=== PATIENT | female | born 1970 | race Caucasian/White ===

== ENCOUNTER 2022-01-27 08:17 | Inpatient (IN) ==
--- NOTE | 2022-01-09 14:11 | PAT Medication Instructions ---
Medication Instructions Date of Service January 09, 2022 Home Medications Medication Instructions Recorded LORAZEPAM 1 mg PO Q6H PRN #20 05/05/13 OXYCODONE/ACETAMINOPHEN 5MG/325MG 1 - 2 tab PO Q4H PRN #90 05/05/13 LORAZEPAM 1 mg PO Q6H PRN OXYCODONE/ACETAMINOPHEN 5MG/325MG 1 - 2 tab PO Q4H PRN cyclobenzaprine 5 mg tablet 5 mg PO TID gabapentin 800 mg tablet 800 mg PO TID lactobacillus combination no.4 3 billion cell capsule (Probiotic) 3,000 mmu ce lls PO QAM magnesium 500 mg tablet 15 mg PO QAM meloxicam 15 mg tablet 15 mg PO QAM omeprazole 20 mg capsule,delayed release 20 mg PO QAM simvastatin 20 mg tablet 20 mg PO HS ASK your surgeon for instructions meloxicam 15 mg tablet 15 mg PO QAM DO NOT take the morning of surgery cyclobenzaprine 5 mg tablet 5 mg PO TID lactobacillus combination no.4 3 billion cell capsule (Probiotic) 3,000 mmu cells PO QAM magnesium 500 mg tablet 15 mg PO QAM Take morning of surgery With a small sip of water, OTHERWISE NOTHING TO EAT OR DRINK AFTER MIDNIGHT: LORAZEPAM 1 mg PO Q6H PRN(if needed) OXYCODONE/ACETAMINOPHEN 5MG/325MG 1 - 2 tab PO Q4H PRN(okay to take up to 4 hours prior to surgery if needed) gabapentin 800 mg tablet 800 mg PO TID omeprazole 20 mg capsule,delayed release 20 mg PO QAM Take evening before surgery LORAZEPAM 1 mg PO Q6H PRN(if needed) OXYCODONE/ACETAMINOPHEN 5MG/325MG 1 - 2 tab PO Q4H PRN(if needed) cyclobenzaprine 5 mg tablet 5 mg PO TID gabapentin 800 mg tablet 800 mg PO TID simvastatin 20 mg tablet 20 mg PO HS Other Notes If you have any questions please call us at [phone] or [phone] or [phone] or [phone]
--- NOTE | 2022-01-14 13:02 | Anesthesiology Consultation ---
Date of Service January 14, 2022 Assessment & Plan (1) Encounter for pre-operative examination: - check urine test STAT am DOS. - surgeon ordered medical clearance. - Pt reports several glasses-1 bottle of wine daily. - COVID screening: Per assessment on 01/14/2022: Travel screen negative, no known COVID-19 positive contacts or current COVID-19 related symptoms in past 2 weeks. Pt vaccinated. Surgeon arranging preop COVID testing, scheduled 01/23/2022. Awaiting results. Chart Review Chart Review: Pending: Refer to Additional Notes / Consult section and Patient seen in Pre Admission Testing Teaching & Discussion Pre-Anesthesia Teaching/Discussion Notes: Instructed NPO after midnight before surgery, except medications with 15 cc of water. Medication instructions provided according to the PAT guidelines. History Surgery Operation Date: 01/27/22 09:45 Proposed Procedures p L3-L4 Decompression, L3-L5 Fusion, Removal of Coflex, Spinal Cord Monitoring - Peter Cabello, Height/Weight Height: 5 ft 4 in Weight: 101.6 kg Allergies Allergy/AdvReac Type Severity Reaction Status Date / Time No Known Allergies Allergy Unverified 01/09/22 12:22 Medications Home Medications Medication Instructions Recorded Confirmed Last Taken LORAZEPAM 1 mg PO Q6H PRN #20 05/05/13 Unknown OXYCODONE/ACETAMINOPHEN 5MG/325MG 1 - 2 tab PO Q4H PRN #90 05/05/13 Unknown cyclobenzaprine 5 mg tablet 5 mg PO TID 01/09/22 01/09/22 Unknown gabapentin 800 mg tablet 800 mg PO TID 01/09/22 01/09/22 Unknown lactobacillus combination no.4 3 3,000 mmu cells PO QAM 01/09/22 01/09/22 Unknown billion cell capsule (Probiotic) lorazepam 1 mg tablet 1 mg PO BID PRN 01/09/22 01/09/22 Unknown magnesium 500 mg tablet 15 mg PO QAM 01/09/22 01/09/22 Unknown meloxicam 15 mg tablet 15 mg PO QAM 01/09/22 01/09/22 Unknown omeprazole 20 mg capsule,delayed 20 mg PO QAM 01/09/22 01/09/22 Unknown release simvastatin 20 mg tablet 20 mg PO HS 01/09/22 01/09/22 Unknown Past Medical History Medical History (Updated 01/14/22 @ 13:58 by Lisa Burnham PA-C) Cauda equina compression 2018 Foot drop WEARS BRACE GERD (gastroesophageal reflux disease) controlled, stable per pt History of tachycardia 3-4 YRS- GAVIN GAMEZRocky-"ADMITTED AND NO KNOWN CAUSE WAS FOUND"- to chart review of that time frame, hospitalization with notation of tachycardia was 11/26/2017, EKG sinus tach in setting of respiratory illness, admitted and received IV antibiotics Hyperlipidemia Neurogenic bladder Patient denies h/o stroke, seizures, heart attack, heart failure, DM, HTN, blood clots or blood transfusions. Exercise / Class Metabolic Activity II 4-5 Yardwork/Stairs/Walk up hill (denies CP or SOB with 1 FOS) Past Surgical History Surgical History Previous back surgery X 2- LAST ONE [address] CABELLO first one in S/P colonoscopy Status post incision and drainage 1 yr ago ingrown hair Past Anesthesia History No Hx of Anesthesia Complications and No Family Hx of Anesthesia Complications History of PONV No Hx of PONV and No Hx of Motion Sickness Social History Smoking Status: Former smoker Do You Dip or Chew Tobacco: No Smoking End Date: 20 YRS AGO Hx Alcohol Use: Yes (1 BOTTLE OF WINE/ DAY-denies concerns NPO for surgery; denies h/o DTs) Alcohol type: wine Hx Substance Use: No substance use type: does not use Review of Systems Patient denies chest pain, shortness of breath, dyspnea on exertion, snoring, witnessed apneas, fever, chills, cough, wheezing, or palpitations. Physical Exam Vital Signs Vitals BP 124/88 P 87 TEMP 98.7 SP02 98% on RA RESP 16 Physical Full cervical extension range of motion without pain TMD 3.5 finger breaths Mallampati Score 3 Dentition: intact, several missing teeth throughout, denies chipped or loose t eeth, caps/crowns, implants or bridges Lungs: normal respiratory effort. Clear throughout to auscultation, no adventitious breath sounds Cardiac: regular rate and rhythm, no murmurs noted Carotid arteries: negative bruit bilat Lab Results Anesthesia Preop Results Results Anesthesia Widget: WBC 6.66 K/uL (4.8-10.8) 01/14/22 Hgb 13.5 g/dL (12.0-16.0) 01/14/22 Hct 40.7 % (37-47) 01/14/22 Plt 238 K/uL (130-400) 01/14/22 Na 138 mmol/L (136-145) 01/14/22 K 4.3 mmol/L (3.5-5.1) 01/14/22 Cl 103 mmol/L (98-107) 01/14/22 CO2 29 mmol/L (21-32) 01/14/22 BUN 10 mg/dl (6-23) 01/14/22 Creat 0.83 mg/dl (0.6-1.2) 01/14/22 Glucose Level 102 mg/dl (70-99(Fasting)) H 01/14/22 PT 10.4 Seconds (9.0-12.0) 01/14/22 PTT 29.7 Seconds (21.0-31.0) 01/14/22 INR 1.0 (0.9-1.1) 01/14/22 Urine Color Yellow 01/14/22 Urine Appearance Clear (Clear) 01/14/22 Urine pH 6.5 (4.5-7.5) 01/14/22 Urine Specific [place] 1.009 (1.000-1.030) 01/14/22 Urine Protein Negative (Negative) 01/14/22 Urine Glucose (UA) Negative (Negative) 01/14/22 Urine Ketones Trace (Negative) H 01/14/22 Urine Blood Negative (Negative) 01/14/22 Urine Nitrite Negative (Negative) 01/14/22 Urine Bilirubin Negative (Negative) 01/14/22 Urine Urobilinogen Negative (Negative) 01/14/22 Urine Leukocyte Esterase 2+ (Negative) H 01/14/22 Urine WBC (Auto) 1-5 /hpf (0-5) 01/14/22 Urine RBC (Auto) 0-4 /hpf (0-4) 01/14/22 Urine Hyaline Casts (Auto) 1-5 /lpf (0-5) 01/14/22 Urine Epithelial Cells (Auto) 10-20 /lpf (0-5) H 01/14/22 Urine Bacteria (Auto) Negative (Negative) 01/14/22 Blood Type A Positive 01/14/22 Antibody Screen NEGATIVE 01/14/22 Testing Electrocardiogram Date: 01/14/22 NSR, rate 85 bpm Chest X-Ray Date: 04/25/21 Heart normal in size. Lungs clear. No effusion or pneumothorax. Visualized abdomen is unremarkable. Echocardiogram Date: 11/24/17 EF 67% Normal LV wall motion "bubble study" negative for R to L intracardiac shunt No significant valvular dysfunction Cervical Spine Date: 04/21/21 X-ray No visible fracture. AP alignment is normal. Mild disc space narrowing at C4-C 5 and C6-C7. Endplate osteophyte formation at multiple levels with otherwise preserved disc spaces. No dynamic instability. Mild facet and uncovertebral joint arthropathy. IMPRESSION No acute findings. Mild degenerative changes.
[~2022-01-27 08:17] MED LIST: ACETAMINOPHEN 500 MG TAB PO SCH; CeleBREX 200 MG CAP PO SCH; GABAPENTIN 900 MG DOSE PO SCH; LR 15ML/HR IV SCH; ceFAZolin 2000MG 2,000 MG/15 ML SYR IV SCH
[2022-01-27] MEDS ORDERED: PROPOFOL IV EMULSION 10 MG/ML 20 ML VIAL IV ONE (09:01)
[2022-01-27] MEDS ORDERED: DEXAMETHASONE SOD INJ 4 MG/ML VIAL ONE (09:01)
[2022-01-27] MEDS ORDERED: LIDOCAINE 2% 2 ML VIAL/AMP(20MG/ML) INFIL ONE (09:01)
[2022-01-27] MEDS ORDERED: ONDANSETRON INJ 2 MG/ML 2 ML VIAL ONE (09:01)
[2022-01-27] MEDS ORDERED: ROCURONIUM BROMIDE 10 MG/ML 5 ML VIAL IV ONE (09:01)
[2022-01-27] MEDS ORDERED: MIDAZOLAM HCL 1 MG/ML 2ML VIAL ONE (09:01)
[2022-01-27] MEDS ORDERED: fentaNYL citrate 100 MCG/2 ML VIAL ONE (09:01)
[2022-01-27] MEDS ORDERED: PROMETHAZINE HCL 12.5 MG in SODIUM CHLORIDE 0.9% 50 ML IV PRN ×2 (09:13→14:38)
[2022-01-27] MEDS ORDERED: ATROPINE SULFATE 0.1 MG/ML 10ML SYR IV PRN (09:13)
[2022-01-27] MEDS ORDERED: ONDANSETRON INJ 2 MG/ML 2 ML VIAL IV PRN ×2 (09:13→14:38)
[2022-01-27] MEDS ORDERED: LABETALOL HCL IV 5 MG/ML 20ML IV PRN (09:13)
--- NOTE | 2022-01-27 09:30 | History & Physical Bridge Note ---
Date of Service January 27, 2022 History & Physical Bridge Note I have examined the patient, reviewed the History & Physical and in the interval since the performance of the History & Physical I have noted the following changes of clinical significance: no changes noted
--- NOTE | 2022-01-27 09:31 | History & Physical Report ---
Date of Service January 27, 2022 Assessment & Plan (1) Neurogenic claudication due to lumbar spinal stenosis: Plan: L3-4 decompression, L3-L5 fusion, removal of Coflex History of Present Illness Chief Complaint: Back and leg pain Primary Care Provider: Phani Singer This is a 51-year-old female who presents with chronic persistent back and leg pain. From extensive course of nonoperative care she is here for surgical invention. Allergies Allergy/AdvReac Type Severity Reaction Status Date / Time No Known Allergies Allergy Verified 01/27/22 08:45 Home Medications Medication Instructions Recorded Confirmed Type LORAZEPAM 1 mg PO Q6H PRN #20 05/05/13 01/27/22 Rx OXYCODONE/ACETAMINOPHEN 5MG/325MG 1 - 2 tab PO Q4H PRN #90 05/05/13 01/27/22 Rx cyclobenzaprine 5 mg tablet 5 mg PO TID 01/09/22 01/27/22 History gabapentin 800 mg tablet 800 mg PO TID 01/09/22 01/09/22 History lactobacillus combination no.4 3 3,000 mmu cells PO QAM 01/09/22 01/27/22 History billion cell capsule (Probiotic) lorazepam 1 mg tablet 1 mg PO BID PRN 01/09/22 01/27/22 History magnesium 500 mg tablet 15 mg PO QAM 01/09/22 01/27/22 History meloxicam 15 mg tablet 15 mg PO QAM 01/09/22 01/27/22 History omeprazole 20 mg capsule,delayed 20 mg PO QAM 01/09/22 01/09/22 History release simvastatin 20 mg tablet 20 mg PO HS 01/09/22 01/27/22 History Past Med/Surg History Medical History (Updated 01/27/22 @ 09:31 by Peter Cabello DO) Cauda equina compression 2018 Foot drop WEARS BRACE GERD (gastroesophageal reflux disease) controlled, stable per pt History of tachycardia 3-4 YRS- GAVIN DAVIS-"ADMITTED AND NO KNOWN CAUSE WAS FOUND"- to chart review of that time frame, hospitalization with notation of tachycardia was 11/26/2017, EKG sinus tach in setting of respiratory illness, admitted and received IV antibiotics Hyperlipidemia Neurogenic bladder Surgical History Previous back surgery X 2- LAST ONE [address] CABELLO first one in 1989' S/P colonoscopy Status post incision and drainage 1 yr ago ingrown hair Social History Smoking Status: Former smoker Smoking End Date: 20 YRS AGO; Second Hand Exposure: No; Do You Dip or Chew Tobacco: No; Tobacco Cessation Education Requested by Patient: No Hx Alcohol Use: Yes (1 BOTTLE OF WINE/ DAY-denies concerns NPO for surgery; denies h/o DTs) Alcohol type: wine Hx Substance Use: No Preferred Language: Latvian Communication Ability: Effective Green Ware Caster Required: No Beliefs That Will Affect Care: None Current Living Situation: Spouse Other Information That Helps Us Care for You: No Feels Safe at Home: Yes Safety Concerns: Feels Safe At This Time Assistive Devices: Cane, Glasses and Special Shoe Assistive Devices Comment: USES CANE OCC, AND FOOT BRACE AND SPECIAL SHOES Physical Exam Physical Exam: Patient is alert and oriented Heart regular rhythm Lungs clear Results & Data Results & Data ([facility]) Vital Signs (Past 12 Hours) Vital Signs Temp Pulse Resp BP Pulse Ox 01/27/22 08:59 36.6 C 97 H 18 146/99 H 98
[2022-01-27] MEDS ORDERED: BUPIVACAINE/EPINEPHRINE 0.25% 1:200,000 30 ML VIAL ONE (09:51)
[2022-01-27] MEDS ORDERED: ceFAZolin 330 MG/ML 1 GM VIAL ONE (09:51)
[2022-01-27] MEDS ORDERED: REMIFENTANIL HCL 1 MG VIAL ONE (10:26)
[2022-01-27] MEDS ORDERED: FLOSEAL HEMOSTATIC MATRIX 10ML TOP ONE (10:49)
--- NOTE | 2022-01-27 12:09 | Operative Report ---
Post Operative Report Pre & Post Diagnosis Operation Date: 01/27/22 10:05 Pre-Op Diagnosis: Disc Disorders with Radiculopathy, Lumbar Region Post-Op Diagnosis: Disc Disorders with Radiculopathy, Lumbar Region I identified the patient and participated in the time-out.: Yes Procedure Operation Date: 01/27/22 10:05 Actual Procedures 1 removal of posterior instrumentation L4-5. #2 revision decompression with bilateral medial facetectomies and foraminotomies L3-L4 L4-5. #3 posterior spinal fusion L3-L4 L4-L5. #4 placement posterior instrumentation L3-L4 L4-L5. #5 interbody fusion L3-L4 L4-5 per #6 placement of Spira 12 x 22 mm cage at both L3-L4 L4-L5. #7 placement locally harvested morselized autograft in the posterior gutters. #8 placement of I factor with V toss in the interbody space and posterior lateral gutters. Surgeon Peter Cabello, DO Director Of Events Hannah Clements Estimated Blood Loss 150 Findings See Below The patient is 5 foot 4 inches tall weighing over 101 kg with a BMI in excess of 38. Patient's body habitus did contribute to significant technical difficulty required deeper retractors longer instruments in order to perform her procedure. This at least 50% increased operative time. Specimens None Indications This is a 51-year-old female that presents with continued decline in status with bilateral leg pain. Failing course of nonoperative care she is here for surgical invention. Description of Procedure Patient was met with identified informed consent obtained. Patient was then taken to the operative suite underwent ablation placed in a prone position on the top of the Ludwig frame on the Sigifredo table. All bony prominences well- padded eyes inspected to ensure no external pressure placed upon them. This point lumbar spine was prepped and draped in normal sterile fashion. Sharp dissection with the assistance of Bovie cautery was performed down to and exposing the remaining lamina and interlaminar Coflex spacer at L4-5 and L3. I then proceeded to move the interlaminar spacer at L4-L5. I then performed a revision complete laminectomy of L4 and L3 including bilateral medial facetectomies and foraminotomies addressing severe spinal stenosis. Pedicle screws then placed at L3-L4-L5 bilaterally with assistance of fluoroscopy and the proper sized mason placed. By way of a transforaminal approach on the right complete discectomy of L4-5 was performed endplates curetted to subcortical any bone and a 12 x 22 mm spiral cage filled with I factor tapped in position. Then proceeded to L3-L4 and again by way of a transforaminal portion right complete discectomy performed endplates curetted to subcortically bone and a 12 x 22 mm spiral cage with I factor tapped in position. Rods were then locked in final position bilaterally. The transverse processes of L3 L4-5 burred to subcortically bone. I factor combined with V toss and locally harvested morselized autograft was then placed in the posterior gutters. 15 round ROLLY drain inserted. The incision was then closed with 1 Vicryl the fascia 2-0 Vicryl subcutaneously and 4 Monocryl for final skin closure. Steri-Strip sterile dressings placed. Patient waken taken to PACU stable condition. Please note spinal cord monitoring was utilized at the procedure no changes noted. Lastly Hannah Clements was present out the entire surgeon while the patient positioning complex portions of the surgery and final skin closure. I attest to the content of the Intraoperative Record and any orders documented therein. Any exceptions are noted below.
--- NOTE | 2022-01-27 12:29 | Fluoroscopy Report ---
FL lumbar spine 2-3V CLINICAL HISTORY: REMOVE COFLEX/L3-5 DFI COMPARISON STUDY: Lumbar spine fluoroscopic images April 23, 2013. FLUOROSCOPY TIME: 19 seconds. FLUOROSCOPIC IMAGES: 2 FINDINGS: The Coflex device was removed. L3-L4 and L4-L5 discectomies with interbody spacer placement as noted. Posterior decompression with bilateral pedicle screw fusion from L3 through L5 is noted. IMPRESSION: Fluoroscopy provided during L3-L5 discectomies, posterior decompression and bilateral pe dicle screw fusion. ACT 112: Negative or not required by law. Electronically signed by: Baljinder Haile M.D. 01/27/2022 12:27 PM
[2022-01-27] MEDS: HYDROmorphone INJ 1 MG/ML SYRINGE IV PRN ×8 (12:35→14:05)
--- NOTE | 2022-01-27 14:17 | Anesthesiology Progress Note ---
Date of Service January 27, 2022 Anesthesia Post Procedure Vital Signs Vital Signs: Temp Pulse Pulse Resp BP Pulse Ox 01/27/22 13:55 77 22 123/73 100 01/27/22 13:40 83 20 108/64 100 01/27/22 13:25 36.5 C 80 15 105/54 L 94 01/27/22 13:15 83 14 106/62 92 01/27/22 13:05 81 20 103/64 98 01/27/22 12:55 97 H 26 H 103/79 99 01/27/22 12:45 85 14 111/78 100 01/27/22 12:35 99 H 26 H 115/84 100 01/27/22 12:29 36.2 C L 104 H 18 110/88 99 01/27/22 08:59 36.6 C 97 H 18 146/99 H 98 Pain Intensity Lower Back: Pain Intensity: 6 Transfer of Care Handoff Completed per policy Notes Mental Status: alert / awake / arousable Patient Amnestic to Procedure: Yes Nausea / Vomiting: adequately controlled Pain: adequately controlled Airway Patency, RR, SpO2: stable & adequate BP & HR: stable & adequate Hydration State: stable & adequate Anesthetic Complications: no major complications apparent
[2022-01-27] MEDS ORDERED: SOD PHOSPHATE/SOD BIPHOSPHATE ENEMA 132 ML BTL PR PRN (14:38)
[2022-01-27] MEDS ORDERED: NALOXONE HCL 0.4 MG/1 ML VIAL/CARP IV PRN (14:38)
[2022-01-27] MEDS ORDERED: ACETAMINOPHEN 1,000 MG/100 ML VIAL IV PRN (14:38)
[2022-01-27] MEDS ORDERED: DO NOT ADMINISTER PNEUMOCOCCAL VACCINE PRN (14:38)
[2022-01-27] MEDS ORDERED: bisacodyL 10 MG SUPP PR PRN (14:38)
[2022-01-27] MEDS ORDERED: hydrOXYzine HCl 25 MG TAB PO PRN (14:38)
[2022-01-27] MEDS ORDERED: diphenhydrAMINE Capsule 25 MG CAP PO PRN (14:38)
[2022-01-27] MEDS ORDERED: HYDROmorphone INJ 1 MG/ML SYRINGE IV PRN (14:38)
[2022-01-27] MEDS ORDERED: FAMOTIDINE 20 MG TAB PO PRN (14:38)
[2022-01-27] MEDS ORDERED: ALUMINUM/MAGNESIUM SUSP 30 ML UDC PO PRN (14:38)
[2022-01-27] MEDS ORDERED: HYDROmorphone INJ 0.5 MG/0.5 ML SYR IV PRN (14:38)
[2022-01-27] MEDS ORDERED: oxyCODONE HCL IR 5 MG TAB (IMMEDIATE RELEASE) PO PRN (14:38)
[2022-01-27] MEDS ORDERED: ONDANSETRON 4 MG OD TAB PO PRN (14:38)
[2022-01-27] MEDS ORDERED: METOCLOPRAMIDE HCL INJ 5 MG/ML 2 ML VIAL IV PRN (14:38)
[2022-01-27] MEDS ORDERED: LORazepam 2 MG/1 ML VIAL IV PRN (14:38)
[2022-01-27] MEDS ORDERED: ACETAMINOPHEN 500 MG TAB PO PRN (14:38)
[2022-01-27] MEDS ORDERED: DO NOT ADMINISTER FLU VACCINE PRN (14:38)
[2022-01-27] MEDS ORDERED: MAGNESIUM HYDROXIDE SUSP 30 ML UDC PO PRN (14:38)
[2022-01-27] MEDS: LACTATED RINGER'S 1,000 ML IV SCH ×2 (14:45→22:29)
[2022-01-27] MEDS: CYCLOBENZAPRINE HCL 5 MG TAB PO SCH ×2 (15:41→20:28)
[2022-01-27] MEDS: GABAPENTIN 800 MG TAB PO SCH ×2 (15:42→20:29)
[2022-01-27] MEDS: ceFAZolin 2000MG 2,000 MG/15 ML SYR IV SCH (18:16)
--- NOTE | 2022-01-27 19:46 | Hospitalist Consultation ---
Date of Consultation January 27, 2022 Assessment & Plan (1) Neurogenic claudication due to lumbar spinal stenosis: POD#0 L3-L4 decompression, L3-L5 fusion, Coflex removal today by Dr. Cabello Activity and wound care orders as per ortho Pain control with bowel regimen PT/OT Monitor H/H for acute blood loss anemia and transfuse blood products PRN EBL 150 cc (2) Hyperlipidemia: Continue statin (3) GERD (gastroesophageal reflux disease): Continue PPI (4) DVT prophylaxis: TEDs/SCDs as per spine Ortho Thank you for this consultation. We will follow the patient with you during their hospital stay. You can reach a member of the [facility] Hospitalist Team 09/03 via the [facility] in [place] Text. Supervising Physician Co-Signing Physician Notes Patient seen and examined by me, care coordinated with BETSY Headley, please refer to her note above for further detail. 51-yo F with HLD, GERD, chronic left foot drop, neurogenic bladder who is s/p L3-L4 decompression, L3-L5 fusion, Coflex removal today by Dr. Cabello. Postoperatively, the patient is doing well. She reports her pain is much improved. No chest pain or shortness of breath. Denies abdominal pain or nausea. She is alert oriented answering questions appropriately. Lungs are clear to auscultation bilaterally without any wheezing rhonchi or crackles noted. Patient is also using incentive spirometer. Heart sounds regular. Abdomen soft nontender nondistended. Positive bowel sounds. Patient is lying in bed, able to move extremities. Chronic left foot drop is noted. Skin is warm dry well- perfused. Prado catheter placed draining clear yellow urine. Continue to closely monitor, monitor H&H for acute loss anemia. MD Minerva History of Present Illness Reason for Consultation: Postop medical management Requesting Physician: Dr. Cabello History of Present Illness 51-year-old female with PMH HLD, GERD, chronic left foot drop, neurogenic bladder, and other problems listed below who is s/p L3-L4 decompression, L3-L5 fusion, Coflex removal today by Dr. Cabello. Postoperatively, the patient is doing well. She reports her pain is well controlled. Chronic left foot drop is noted. Denies numbness and tingling to the lower extremities. No chest pain or shortness of breath. Denies abdominal pain or nausea. No lightheadedness or dizziness. Prado catheter is in place draining clear yellow urine. Allergies Allergy/AdvReac Type Severity Reaction Status Date / Time No Known Allergies Allergy Verified 01/27/22 08:45 Home Medications Medication Instructions Recorded Confirmed Type LORAZEPAM 1 mg PO Q6H PRN #20 05/05/13 01/27/22 Rx OXYCODONE/ACETAMINOPHEN 5MG/325MG 1 - 2 tab PO Q4H PRN #90 05/05/13 01/27/22 Rx cyclobenzaprine 5 mg tablet 5 mg PO TID 01/09/22 01/27/22 History gabapentin 800 mg tablet 800 mg PO TID 01/09/22 01/09/22 History lactobacillus combination no.4 3 3,000 mmu cells PO QAM 01/09/22 01/27/22 History billion cell capsule (Probiotic) lorazepam 1 mg tablet 1 mg PO BID PRN 01/09/22 01/27/22 History magnesium 500 mg tablet 15 mg PO QAM 01/09/22 01/27/22 History meloxicam 15 mg tablet 15 mg PO QAM 01/09/22 01/27/22 History omeprazole 20 mg capsule,delayed 20 mg PO QAM 01/09/22 01/09/22 History release simvastatin 20 mg tablet 20 mg PO HS 01/09/22 01/27/22 History oxycodone 5 mg tablet 5 mg PO Q6H PRN #30 tab 01/27/22 Rx tramadol 50 mg tablet 50 mg PO Q6H PRN #30 tab 01/27/22 Rx Patient History Medical History Cauda equina compression 2018 Foot drop WEARS BRACE GERD (gastroesophageal reflux disease) controlled, stable per pt History of tachycardia 3-4 YRS- GAVIN DAVIS-"ADMITTED AND NO KNOWN CAUSE WAS FOUND"- to chart review of that time frame, hospitalization with notation of tachycardia was 11/26/2017, EKG sinus tach in setting of respiratory illness, admitted and received IV antibiotics Hyperlipidemia Neurogenic bladder Surgical History Previous back surgery X 2- LAST ONE [address] CABELLO first one in 1989' S/P colonoscopy Status post incision and drainage 1 yr ago ingrown hair Family History Mother Breast cancer Social History Smoking Status: Former smoker Smoking End Date: 20 YRS AGO; Second Hand Exposure: No; Do You Dip or Chew Tobacco: No; Tobacco Cessation Education Requested by Patient: No Hx Alcohol Use: Yes (1 BOTTLE OF WINE/ DAY-denies concerns NPO for surgery; denies h/o DTs) Alcohol type: wine Hx Substance Use: No Preferred Language: [place] Islander Communication Ability: Effective Mediation Commissioner Required: No Beliefs That Will Affect Care: None Current Living Situation: Spouse Other Information That Helps Us Care for You: No Feels Safe at Home: Yes Safety Concerns: Feels Safe At This Time Assistive Devices: Cane, Glasses and Special Shoe Assistive Devices Comment: USES CANE OCC, AND FOOT BRACE AND SPECIAL SHOES Review of Systems Review of Systems: ROS per HPI, all other systems reviewed and negative Physical Exam Constitutional: WD/WN, vitals as above Eyes: PERRL, conjunctivae normal, anicteric sclerae ENMT: external ear and nose normal, oropharynx normal Respiratory: normal respiratory effort, lungs clear to auscultation Cardiovascular: Rate/Rhythm: regular rate and regular rhythm Vessels: normal peripheral pulses Extremities: no edema Gastrointestinal (Abdomen): normal bowel sounds, soft, nontender, no hepatosplenomegaly Musculoskeletal: Extremities: no cyanosis and no clubbing S/p back surgery, drain in place draining bloody drainage, chronic left foot drop noted, right pedal pushes and pulls strong Skin: no rashes, warm and dry Neurologic: PERRL, EOMI, accommodation nl, no face palsy, no dysarthria Psychiatric: A+Ox3, euthymic affect Results & Data Results & Data ([facility]) Vital Signs (Past 12 Hours) Vital Signs Temp Pulse Pulse Resp BP Pulse Ox 01/27/22 17:45 36.3 C L 94 H 16 124/85 94 01/27/22 16:42 36.3 C L 90 16 123/82 97 01/27/22 15:45 36.3 C L 83 16 116/77 96 01/27/22 15:15 36.3 C L 99 H 16 99/67 L 96 01/27/22 14:45 36.3 C L 96 H 16 119/74 100 01/27/22 14:25 36.2 C L 93 H 22 133/82 100 01/27/22 14:10 71 24 130/80 100 01/27/22 13:55 77 22 123/73 100 01/27/22 13:40 83 20 108/64 100 01/27/22 13:25 36.5 C 80 15 105/54 L 94 01/27/22 13:15 83 14 106/62 92 01/27/22 13:05 81 20 103/64 98 01/27/22 12:55 97 H 26 H 103/79 99 01/27/22 12:45 85 14 111/78 100 01/27/22 12:35 99 H 26 H 115/84 100 01/27/22 12:29 36.2 C L 104 H 18 110/88 99 01/27/22 08:59 36.6 C 97 H 18 146/99 H 98
[2022-01-27] MEDS: traMADol HCL 50 MG TABLET PO PRN (20:26)
[2022-01-27] MEDS: DOCUSATE SODIUM/SENNA 50/8.6MG TAB PO SCH (20:28)
[2022-01-27] MEDS: SIMVASTATIN 20 MG TAB PO SCH (20:29)
[2022-01-27] MEDS: LORazepam 0.5 MG TAB PO PRN (20:31)
[2022-01-28] MEDS: ceFAZolin 2000MG 2,000 MG/15 ML SYR IV SCH (01:56)
[2022-01-28] MEDS: LACTATED RINGER'S 1,000 ML IV SCH (05:11)
[2022-01-28] MEDS: POLYETHYLENE (MIRALAX) 17 GM PACK PO SCH ×4 (05:16→21:22)
[2022-01-28] MEDS: CYCLOBENZAPRINE HCL 5 MG TAB PO SCH ×3 (07:51→20:04)
[2022-01-28] MEDS: dexAMETHasone 6 MG in SYRINGE 0 ML IV SCH (07:51)
[2022-01-28] MEDS: PANTOprazole 40 MG TAB PO SCH (07:51)
[2022-01-28] MEDS: ADVANCED PROBIOTIC 1250 MG CAPSULE PO SCH (07:51)
[2022-01-28] MEDS: GABAPENTIN 800 MG TAB PO SCH ×3 (07:51→20:05)
[2022-01-28] MEDS: MAGNESIUM OXIDE 400 MG TAB PO SCH (07:52)
[2022-01-28] MEDS: traMADol HCL 50 MG TABLET PO PRN ×3 (07:54→20:04)
[2022-01-28] MEDS: LORazepam 0.5 MG TAB PO PRN ×2 (07:56→20:09)
[2022-01-28 08:01] LABS: Basophils # (auto) 0.01 K/uL (0-0.2); Basophils % (auto) 0.1 %; Hematocrit (blood only) 36.4 % (37-47); Hemoglobin 11.8 g/dL (12.0-16.0); Immature Granulocytes # (auto) 0.02 K/uL (0.00-0.02); Immature Granulocytes % (auto) 0.1 %; Lymphocytes # (auto) 1.15 K/uL (1.2-3.4); Lymphocytes % (auto) 7.3 %; Mean Corpuscular Hemoglobin 31.2 pg (25-34); Mean Corpuscular Hgb Conc 32.4 g/dL (32-36); Mean Corpuscular Volume 96.3 fL (80-100); Mean Platelet Volume 12.2 fL (7.4-10.4); Monocytes # (auto) 1.05 K/uL (0.11-0.59); Monocytes % (auto) 6.7 %; Neutrophils # (auto) 13.42 K/uL (1.4-6.5); Neutrophils % (auto) 85.8 %; Platelet Count 278 K/uL (130-400); RDW Coefficient of Variation 13.2 % (11.5-14.5); RDW Standard Deviation 46.4 fL (36.4-46.3); Red Blood Count 3.78 M/uL (4.2-5.4); White Blood Count 15.65 K/uL (4.8-10.8)
[2022-01-28 08:17] LABS: BUN Creatinine Ratio 13.4 (10-20); Calcium 9.3 mg/dl (8.5-10.1); Creatinine Clr Calc Pharmacy 112.6 ml/min; Est GFR (African American) 116.3 ml/min; Est GFR (Non-African American) 100.4 ml/min; Potassium 4.6 mmol/L (3.5-5.1)
--- NOTE | 2022-01-28 08:53 | Orthopedic Progress Note ---
Date of Service January 28, 2022 Assessment & Plan (1) Neurogenic claudication due to lumbar spinal stenosis: Plan: Patient is postoperative day 1 status post Coflex removal, decompression instrumented fusion L3-5. Will start physical therapy today. Continue with pain control. Continue with bowel regimen. DVT prophylaxis is in the form of teds and SCDs. Maintain ROLLY drain. Anticipate discharge home within the next 24 to 48 hours. Admission and Anticipated Discharge Date Admission Date: January 27, 2022 Santiago Carter's postoperative day 1 status post Coflex removal with decompression instrumented fusion L3-5. She is doing well. Leg symptoms greatly improved. She is up and amatory around the room. ROLLY drain output last shift was 110 cc. Lab values still pending. Otherwise had an uneventful evening. Review of Systems Review of Systems: All systems reviewed & are unremarkable except as noted in HPI & below Physical Exam Physical Exam: Alert and oriented x3 No acute distress Lumbar dressing is clean dry intact with functioning ROLLY drain Strength intact bilateral lower extremities Results & Data ([facility]) Vital Signs (Past 12 Hours) Vital Signs Temp Pulse Resp BP Pulse Ox 01/28/22 07:24 36.7 C 105 H 16 114/76 95 01/28/22 01:56 36.6 C 98 H 18 123/81 95
--- NOTE | 2022-01-28 13:47 | Hospitalist Progress Note ---
Date of Service January 28, 2022 Assessment & Plan (1) Neurogenic claudication due to lumbar spinal stenosis: Plan: POD#1 L3-L4 decompression, L3-L5 fusion, Coflex removal on 01/27/22, by Dr. Cabello Activity and wound care orders as per ortho Pain control with bowel regimen PT/OT Monitor H/H for acute blood loss anemia and transfuse blood products PRN Mild acute blood loss anemia, postop versus dilutional Current hemoglobin 11.8, preop hemoglobin 13.5 Expected, no need for blood transfusion (2) Hyperlipidemia: Plan: Continue statin (3) GERD (gastroesophageal reflux disease): Plan: Continue PPI (4) DVT prophylaxis: Plan: TEDs/SCDs as per spine Ortho Thank you for this consultation. We will follow the patient with you during their hospital stay. You can reach a member of the [facility] Hospitalist Team 09/03 via the [facility] Hospitalist role in [place] [employer]. Admission and Anticipated Discharge Date Admission Date: January 27, 2022 Subjective Patient seen in follow-up of decompression instrumented fusion L3-5, Coflex removal with Dr. Cabello yesterday Tolerated procedure well. Currently sitting up in chair in no acute distress. She is able to stand up w/o much difficulty, she was already walking with a walker. Denies any chest pain, shortness of breath, abdominal pain, nausea vomiting She is using incentive spirometer Review of Systems Review of Systems: All systems reviewed & are unremarkable except as noted in Subjective Physical Exam Physical Exam: Constitutional:L WD/WN, vitals as a miguelito Eyes: PERRL, EOMI, conju nctivae normal, an icteric sclerae ENMT: external ear and n ose normal, oropha rynx normal Respiratory: normal respiratory effort, lungs mimi ar to auscultation Cardiovascular:L Rate/Rhythm: regul ar rate and regula r rhythm Vessels: normal peripheral pulses Gastrointestinal ( Abdomen): normal bowel sound s, soft, nontender Musculoskeletal: Extremities: no cy anosis and no club liliana S/p back lucrecia lona, drain in christos ce draining bloody drainage, chronic left foot drop no [place], right pedal p ushes and pulls st edy Skin: no rashes, warm an d dry Neurologic: PERRL, EOMI, no fa ce palsy, no dysar thria, moves extre mities, + L foot d rop Psychiatric: A+Ox3, euthymic af fect Results & Data Results & Data ([facility]) Vital Signs (Past 12 Hours) Vital Signs Temp Pulse Resp BP Pulse Ox 01/28/22 11:16 36.7 C 98 H 16 110/69 97 01/28/22 07:24 36.7 C 105 H 16 114/76 95 01/28/22 01:56 36.6 C 98 H 18 123/81 95 Laboratory Results 01/28/22 01/28/22 Range/Units 07:21 07:21 WBC 15.65 H (4.8-10.8) K/uL RBC 3.78 L (4.2-5.4) M/uL Hgb 11.8 L (12.0-16.0) g/dL Hct 36.4 L (37-47) % MCV 96.3 (80-100) fL MCH 31.2 (25-34) pg MCHC 32.4 (32-36) g/dL RDW Std Deviation 46.4 H (36.4-46.3) fL RDW Coeff of Dee 13.2 (11.5-14.5) % Plt Count 278 (130-400) K/uL MPV 12.2 H (7.4-10.4) fL Immature Gran % (Auto) 0.1 % Neut % (Auto) 85.8 % Lymph % (Auto) 7.3 % [place] % (Auto) 6.7 % Eos % (Auto) 0.0 % Baso % (Auto) 0.1 % Neut # (Auto) 13.42 H (1.4-6.5) K/uL Lymph # (Auto) 1.15 L (1.2-3.4) K/uL [place] # (Auto) 1.05 H (0.11-0.59) K/uL Eos # (Auto) 0.00 (0-0.5) K/uL Baso # (Auto) 0.01 (0-0.2) K/uL Immature Gran # (Auto) 0.02 (0.00-0.02) K/uL Sodium 139 (136-145) mmol/L Potassium 4.6 (3.5-5.1) mmol/L Chloride 106 (98-107) mmol/L Carbon Dioxide 27 (21-32) mmol/L Anion Gap 6 (3-11) BUN 9 (6-23) mg/dl Creatinine 0.67 (0.6-1.2) mg/dl Est Cr Clr Drug Dosing 112.6 ml/min Est GFR ( Amer) 116.3 ml/min Est GFR (Non-Af Amer) 100.4 ml/min BUN/Creatinine Ratio 13.4 (10-20) Glucose 168 H (70-99(Fasting)) mg/dl Calcium 9.3 (8.5-10.1) mg/dl Medications Administered Current Inpatient Medications Acetaminophen (Acetaminophen 500 Mg Tab) 1,000 mg PO Q8H PRN PRN Reason: MILD Pain Scale 1,2,3 & Pre PT Stop: 02/26/22 14:37 Al Hydrox/Mg Hydrox/Simethicone (Aluminum/Magnesium Susp 30 Ml Udc) 30 ml PO Q 6H PRN PRN Reason: Dyspepsia Stop: 02/26/22 14:37 Bisacodyl (Bisacodyl 10 Mg Supp) 10 mg NM DAILY PRN PRN Reason: Constipation Stop: 02/26/22 14:37 Cyclobenzaprine HCl (Cyclobenzaprine Hcl 5 Mg Tab) 5 mg PO TID [facility] Stop: 02/26/22 14:37 Last Admin: 01/28/22 07:51 Dose: 5 mg Documented by: Diphenhydramine HCl (Diphenhydramine Capsule 25 Mg Cap) 25 mg PO Q6H PRN PRN Reason: Allergic Rhinitis/Insomnia Stop: 02/26/22 14:37 Famotidine (Famotidine 20 Mg Tab) 20 mg PO Q12H PRN PRN Reason: Dyspepsia Stop: 02/26/22 14:37 Gabapentin (Gabapentin 800 Mg Tab) 800 mg PO TID [facility] Stop: 02/26/22 15:29 Last Admin: 01/28/22 07:51 Dose: 800 mg Documented by: Hydromorphone HCl (Hydromorphone Inj 0.5 Mg/0.5 Ml Syr) 0.5 mg IV Q3H PRN PRN Reason: MODERATE Pain (Scale 4,5,6) & Pre PT Stop: 02/10/22 14:37 Hydromorphone HCl (Hydromorphone Inj 1 Mg/Ml Syringe) 1 mg IV Q3H PRN PRN Reason: SEVERE Pain (Scale 7,8,9,10) Stop: 02/10/22 14:37 Hydroxyzine HCl (Hydroxyzine Hcl 25 Mg Tab) 25 mg PO Q8H PRN PRN Reason: Anxiety Stop: 02/26/22 14:37 Promethazine HCl 12.5 mg/ (Sodium Chloride) 50.5 mls @ 202 mls/hr IV Q6H PRN PRN Reason: Nausea &/or Vomiting Stop: 02/26/22 14:37 Acetaminophen (Ofirmev) 1,000 mg in 100 mls @ 400 mls/hr IV Q8H PRN PRN Reason: Pain Rating 1-3 & Pre PT Stop: 01/30/22 14:37 Dexamethasone 6 mg/ Syringe 1.5 mls @ 1 mls/min IV DAILY THUAN Stop: 01/30/22 09:02 Last Admin: 01/28/22 07:51 Dose: 1 mls/min Documented by: Influenza Virus Vaccine Quadrival (Do Not Administer Flu Vaccine) 1 ea N/A PRN PRN PRN Reason: Notification Stop: 02/26/22 14:37 Lactobacillus Acidophilus (Advanced Probiotic 1250 Mg Capsule) 2 cap PO QAM [facility] Stop: 02/27/22 08:59 Last Admin: 01/28/22 07:51 Dose: 2 cap Documented by: Lorazepam (Lorazepam 0.5 Mg Tab) 0.5 mg PO Q8H PRN PRN Reason: Sedation/Anxiety Stop: 02/26/22 14:37 Last Admin: 01/28/22 07:56 Dose: 0.5 mg Documented by: Lorazepam (Lorazepam 2 Mg/1 Ml Vial) 0.5 mg IV Q8H PRN PRN Reason: Sedation/Anxiety Stop: 02/26/22 14:37 Magnesium Hydroxide (Magnesium Hydroxide Susp 30 Ml Udc) 30 ml PO Q24H PRN PRN Reason: Constipation Stop: 02/26/22 14:37 Magnesium Oxide (Magnesium Oxide 400 Mg Tab) 400 mg PO QAM [facility] Stop: 02/27/22 08:59 Last Admin: 01/28/22 07:52 Dose: 400 mg Documented by: Metoclopramide HCl (Metoclopramide Hcl Inj 5 Mg/Ml 2 Ml Vial) 10 mg IV Q6H PRN PRN Reason: Nausea &/or Vomiting Stop: 02/26/22 14:37 Naloxone HCl (Naloxone Hcl 0.4 Mg/1 Ml Vial/Carp) 0.1 mg IV Q5M PRN PRN Reason: Oversedation/Resp depression Stop: 02/26/22 14:37 Ondansetron HCl (Ondansetron Inj 2 Mg/Ml 2 Ml Vial) 4 mg IV Q6H PRN PRN Reason: Nausea &/or Vomiting Stop: 02/26/22 14:37 Last Admin: 01/27/22 15:51 Dose: 4 mg Documented by: Ondansetron HCl (Ondansetron 4 Mg Od Tab) 4 mg PO Q6H PRN PRN Reason: Nausea Stop: 02/26/22 14:37 Oxycodone HCl (Oxycodone Hcl Ir 5 Mg Tab (Immediate Release)) 5 - 10 mg PO Q4H PRN PRN Reason: Pain & Pre PT Stop: 02/10/22 14:37 Pantoprazole Sodium (Pantoprazole 40 Mg Tab) [facility] Stop: 02/27/22 08:59 Last Admin: 01/28/22 07:51 Dose: 40 mg Documented by: Pneumococcal Polyvalent Vaccine (Do Not Administer Pneumococcal Vaccine) 1 ea N/A PRN PRN PRN Reason: Notification Stop: 02/26/22 14:37 Polyethylene Glycol (Polyethylene (Miralax) 17 Gm Pack) 17 gm PO Q6 THUAN Stop: 02/27/22 05:59 Last Admin: 01/28/22 12:39 Dose: Not Given Documented by: Senna/Docusate Sodium (Docusate Sodium/Senna 50/8.6mg Tab) 2 tab PO [facility] Stop: 02/26/22 20:59 Last Admin: 01/27/22 20:28 Dose: 2 tab Documented by: Simvastatin (Simvastatin 20 Mg Tab) 20 mg PO [facility] Stop: 02/26/22 20:59 Last Admin: 01/27/22 20:29 Dose: 20 mg Documented by: Sodium Biphosphate/Sodium Phosphate (Sod Phosphate/Sod Biphosphate Enema 132 Ml Btl) 132 ml NM ONE PRN PRN Reason: Constipation Stop: 02/26/22 14:37 Tramadol HCl (Tramadol Hcl 50 Mg Tablet) 50 - 100 mg PO Q4H PRN PRN Reason: Moderate-Severe pain & Pre PT Stop: 02/26/22 14:37 Last Admin: 01/28/22 07:54 Dose: 50 mg Documented by:
[2022-01-28] MEDS ORDERED: LORazepam 0.5 MG in SYRINGE 0.75 ML IV PRN (19:33)
[2022-01-28] MEDS: DOCUSATE SODIUM/SENNA 50/8.6MG TAB PO SCH (20:05)
[2022-01-28] MEDS: SIMVASTATIN 20 MG TAB PO SCH (20:05)
[2022-01-28] MEDS ORDERED: LORazepam 0.5 MG in SYRINGE 0.25 ML IV PRN (23:01)
[2022-01-29] MEDS: POLYETHYLENE (MIRALAX) 17 GM PACK PO SCH ×2 (04:16→11:44)
[2022-01-29] MEDS: traMADol HCL 50 MG TABLET PO PRN (05:53)
[2022-01-29 06:27] LABS: Hematocrit (blood only) 35.4 % (37-47); Hemoglobin 11.8 g/dL (12.0-16.0); Mean Corpuscular Hemoglobin 32.9 pg (25-34); Mean Corpuscular Hgb Conc 33.3 g/dL (32-36); Mean Corpuscular Volume 98.6 fL (80-100); Platelet Count 283 K/uL (130-400); RDW Coefficient of Variation 13.3 % (11.5-14.5); RDW Standard Deviation 48.1 fL (36.4-46.3); Red Blood Count 3.59 M/uL (4.2-5.4); White Blood Count 15.77 K/uL (4.8-10.8)
[2022-01-29 06:52] LABS: BUN Creatinine Ratio 17.9 (10-20); Calcium 9.3 mg/dl (8.5-10.1); Creatinine Clr Calc Pharmacy 112.6 ml/min; Est GFR (African American) 116.3 ml/min; Est GFR (Non-African American) 100.4 ml/min; Magnesium 2.1 mg/dl (1.7-2.4); Phosphorus 2.8 mg/dl (2.5-4.9); Potassium 4.1 mmol/L (3.5-5.1)
[2022-01-29] MEDS: LORazepam 0.5 MG TAB PO PRN (08:19)
[2022-01-29] MEDS: GABAPENTIN 800 MG TAB PO SCH ×2 (08:20→13:43)
[2022-01-29] MEDS: MAGNESIUM OXIDE 400 MG TAB PO SCH (08:21)
[2022-01-29] MEDS: PANTOprazole 40 MG TAB PO SCH (08:21)
[2022-01-29] MEDS: CYCLOBENZAPRINE HCL 5 MG TAB PO SCH ×2 (08:22→13:43)
[2022-01-29] MEDS: ADVANCED PROBIOTIC 1250 MG CAPSULE PO SCH (08:22)
[2022-01-29] MEDS: dexAMETHasone 6 MG in SYRINGE 0 ML IV SCH (08:24)
--- NOTE | 2022-01-29 08:26 | Discharge Summary ---
Date of Service January 29, 2022 Admission HPI Per Admitting Provider This is a 51-year-old female who presents with chronic persistent back and leg pain. From extensive course of nonoperative care she is here for surgical invention. Principal Diagnosis Lumbar spinal stenosis with neurogenic claudication Discharge Data Allergies Allergy/AdvReac Type Severity Reaction Status Date / Time No Known Allergies Allergy Verified 01/27/22 08:45 Consultations 01/27/22 14:38 Consult Hospitalist Routine Procedures Performed Operation Date: 01/27/22 10:05 Actual Procedures p L3-L4 Decompression, L3-L5 Fusion, Application of cage, Spinal Cord Monitoring(Not Applicable) - Peter Cabello DO s Removal of Coflex(Not Applicable) - Peter Cabello DO Ordered Studies 01/27/22 10:05 [place] lumbar spine 2-3V Routine Hospital Course (1) Neurogenic claudication due to lumbar spinal stenosis: Patient underwent lumbar decompression fusion tolerated this well was taken to orthopedic for postoperative. Postop day 1 she was up and ambulating progressed to postop day 2. Pain markedly improved. Excellent strength testing. ROLLY drain decreasing appropriately. Subsequently discharged home. Discharge orders instructions from the chart for further view. Total Time Total Time Spent Total Time Spent (In Minutes): 20 minutes Discharge Plan Discharge Items Patient Disposition: Home - Self-Care Reason For Visit: Disc Disorders with Radiculopathy, Lumbar Region Discharge Diagnosis: Lumbar spinal stenosis with radiculopathy Activity: As commented below Non-emergency contact: Primary Care Provider Call non-emergency contact if: you have any medication questions Follow-up/Referrals: Phani Singer PA-C [Primary Care Provider] - Diet: Regular Addtl Attending Provider Instructions: ACTIVITY RECOMMENDATIONS: SELF CARE INSTRUCTIONS AFTER THORACIC/LUMBAR FUSIONS 1. You may walk to your tolerance. It is good exercise for your legs and back. Expect some back and intermittent leg aches and pains. 2. You may perform "counter-top" level activities (make a sandwich, ema with a project, etc.). 3. No bending or lifting of more than 10 pounds or back twisting of any nature (roll like a log when turning in bed). 4. You may ride in a car for 20-30 minutes at a time. No driving until after your first visit with your doctor. 5. Frequent changes of position and restricting sitting to 30 minutes at a time will help limit the amount of back spasms and stiffness you may experience. 6. You may discontinue the use of ambulatory aids (cane, crutches, etc.) once your strength and confidence allow. 7. You may industrial maintenance mechanic the shower and let water strike your incision when you arrive home at least once daily. Do not take a tub bath, sit in a hot tub or go into a swimming pool until after your first recheck in the office. SPECIAL CARE INSTRUCTIONS: VERY IMPORTANT TO READ AND REVIEW A. Your surgical incision has been closed with a cosmetic suture under the skin that will dissolve in about 6 weeks. In 14 days, you can use a pair of clean scissors and cut the suture that is left outside of the skin at the ends of your incision. 1. The small skin tapes can be removed 7 days after surgery if they have not fallen off by that point. 2. You may keep the wound open to air as much as possible to promote healing after post-op day number 5 unless told otherwise by your doctor. 3. If you think the wound looks like it is becoming infected (redness or worsening drainage) and/or you are experiencing fever, chill or worsening back pain and muscle spasms, contact the office so that we may evaluate you as soon as possible. B. Complications are uncommon, but please contact us if you have any signs or symptoms of: 1. wound infection (fever higher than 102.5 degrees F, redness, separation of wound, drainage, or increasing pain from the incision) 2. blood clots in legs (pain, swelling, redness and warmth in legs) 3. urinary tract infection (fever higher than 102.5 degrees F, burning upon urination or increased frequency of urination) 4. nerve problems (inability to walk on your toes or heels, numbness, loss of bowel or bladder control) 5. any other symptoms that concern you C. Please call the office at if you have any concerns or questions about your operation or recovery. D. No smoking! Smoking drastically decreases the chance of a solid fusion. E. Do not take any anti-inflammatory medications (Indocin, Advil, Motrin, Aspirin, Naprosyn, etc.) as these may inhibit the chance of a solid fusion. Tylenol is okay to take for pain. MANAGING PAIN AFTER SPINAL SURGERY 1. Narcotic medication is intended for short-term use and will be provided for surgical pain. Surgical pain usually lasts for a period of 4-6 weeks. Narcotic medication includes Percocet, Vicodin, Darvocet, Tylenol #3 or Lortab. 2. Longer-term pain is more appropriately treated with non-narcotic medication such as Tylenol ES. 3. Muscle spasm is not appropriately treated with narcotics. Muscle relaxers such as Soma, Flexeril or Skelaxin can be used along with Tylenol ES. 4. Remember that we all live with some "aches and pains". This is not unusual or uncommon after an injury or as we get older. a. Back pain is expected and may include muscle spasms for 4 to 6 weeks after surgery. The pain should gradually improve. If the pain worsens for no apparent reason, please contact the office. b. Intermittent leg pain may also be experienced and should not be concerned about unless it worsens for no apparent reason. If so, please contact the office. 5. We will provide appropriate medication within the normal guidelines of their prescribed use. We will also be very cautious and aware of potential abuse and extended duration of patients' medication needs. a. Pain medications are for your comfort and to assist with sleep and rest so that the tissue can heal. They are not provided in order to return to normal activity and should not be used through the day. To do so or worsening pain at night can result from ongoing tissue damage and development of tolerance to the prescribed medicine. 6. Please allow 2-3 days to process refills. Prescriptions will not be mailed but must be picked up at the office. FOLLOW UP VISIT: Keep your scheduled follow-up appointment. Any questions, please call the office at . Pending Studies at Discharge: No Stand-Alone Forms: My [employer], Smoking Cessation Medications and DC Order Prescriptions: New tramadol 50 mg tablet 50 mg PO Q6H PRN (Reason: pain, moderate) Qty: 30 RF: 0 oxycodone 5 mg tablet 5 mg PO Q6H PRN (Reason: pain, severe) Qty: 30 RF: 0 Continued LORAZEPAM 1 MG tablet 1 mg PO Q6H PRNQty: 20 RF: 0 OXYCODONE/ACETAMINOPHEN 5MG/325MG 1 TAB tablet 1 - 2 tab PO Q4H PRNQty: 90 RF: 0 magnesium 500 mg Tablet 15 mg PO QAM RF: 0 meloxicam 15 mg Tablet 15 mg PO QAM RF: 0 gabapentin 800 mg Tablet 800 mg PO TID RF: 0 simvastatin 20 mg Tablet 20 mg PO HS RF: 0 omeprazole 20 mg Capsule,Delayed Release(Dr/Ec) 20 mg PO QAM RF: 0 lorazepam 1 mg Tablet 1 mg PO BID PRN (Reason: Anxiety) RF: 0 cyclobenzaprine 5 mg Tablet 5 mg PO TID RF: 0 Probiotic 3 billion cell Capsule 3,000 mmu cells PO QAM RF: 0 Discharge Orders: Discharge Order (Routine); Ordered 01/29/22 Ordered By: Peter Cabello Admission Data Admit Date/Time: 01/27/22 12:12 Attending Provider: Peter Cabello Admit Provider: Peter Cabello Primary Care Provider: Phani Singer Other Providers: Bebo Palma
--- NOTE | 2022-01-29 09:49 | Hospitalist Progress Note ---
Date of Service January 29, 2022 Assessment & Plan (1) Neurogenic claudication due to lumbar spinal stenosis: Plan: POD#2 L3-L4 decompression, L3-L5 fusion, Coflex removal on 01/27/22, by Dr. Cabello Activity and wound care orders as per ortho Pain control with bowel regimen PT/OT Monitor H/H for acute blood loss anemia and transfuse blood products PRN Mild acute blood loss anemia, postop versus dilutional Current hemoglobin 11.8, preop hemoglobin 13.5 Expected, no need for blood transfusion (2) Hyperlipidemia: Plan: Continue statin (3) GERD (gastroesophageal reflux disease): Plan: Continue PPI (4) DVT prophylaxis: Plan: TEDs/SCDs as per spine Ortho Thank you for this consultation. We will follow the patient with you during their hospital stay. You can reach a member of the [facility] Hospitalist Team 09/03 via the [place] Hospitalist role in [employer]. Admission and Anticipated Discharge Date Admission Date: January 27, 2022 Subjective Patient seen in follow-up of decompression instrumented fusion L3-5, Coflex removal with Dr. Cabello Tolerated procedure well. Currently walking with a walker, with PT. Denies any chest pain, shortness of breath, abdominal pain, nausea vomiting She is using incentive spirometer Review of Systems Review of Systems: All systems reviewed & are unremarkable except as noted in Subjective Physical Exam Physical Exam: Constitutional:L WD/WN, vitals as a miguelito Eyes: PERRL, EOMI, conju nctivae normal, an icteric sclerae ENMT: external ear and n ose normal, oropha rynx normal Respiratory: normal respiratory effort, lungs mimi ar to auscultation Cardiovascular:L Rate/Rhythm: regul ar rate and regula r rhythm Vessels: normal peripheral pulses Gastrointestinal ( Abdomen): normal bowel sound s, soft, nontender Musculoskeletal: Extremities: no cy anosis and no club liliana S/p back lucrecia lona, drain in christos ce draining bloody drainage, chronic left foot drop no [place], right pedal p ushes and pulls st edy Skin: no rashes, warm an d dry Neurologic: PERRL, EOMI, no fa ce palsy, no dysar thria, moves extre mities, + L foot d rop Psychiatric: A+Ox3, euthymic af fect Results & Data Results & Data ([facility]) Vital Signs (Past 12 Hours) Vital Signs Temp Pulse Resp BP Pulse Ox 01/29/22 07:26 36.4 C L 77 16 143/83 H 98 Laboratory Results 01/29/22 01/29/22 01/27/22 Range/Units 05:39 05:39 08:48 WBC 15.77 H (4.8-10.8) K/uL RBC 3.59 L (4.2-5.4) M/uL Hgb 11.8 L (12.0-16.0) g/dL Hct 35.4 L (37-47) % MCV 98.6 (80-100) fL MCH 32.9 (25-34) pg MCHC 33.3 (32-36) g/dL RDW Std Deviation 48.1 H (36.4-46.3) fL RDW Coeff of Dee 13.3 (11.5-14.5) % Plt Count 283 (130-400) K/uL MPV 12.0 H (7.4-10.4) fL Sodium 140 (136-145) mmol/L Potassium 4.1 (3.5-5.1) mmol/L Chloride 104 (98-107) mmol/L Carbon Dioxide 31 (21-32) mmol/L Anion Gap 5 (3-11) BUN 12 (6-23) mg/dl Creatinine 0.67 (0.6-1.2) mg/dl Est Cr Clr Drug Dosing 112.6 ml/min Est GFR ( Amer) 116.3 ml/min Est GFR (Non-Af Amer) 100.4 ml/min BUN/Creatinine Ratio 17.9 (10-20) Glucose 104 H (70-99(Fasting)) mg/dl Calcium 9.3 (8.5-10.1) mg/dl Phosphorus 2.8 (2.5-4.9) mg/dl Magnesium 2.1 (1.7-2.4) mg/dl Crossmatch See Detail Medications Administered Current Inpatient Medications Acetaminophen (Acetaminophen 500 Mg Tab) 1,000 mg PO Q8H PRN PRN Reason: MILD Pain Scale 1,2,3 & Pre PT Stop: 02/26/22 14:37 Al Hydrox/Mg Hydrox/Simethicone (Aluminum/Magnesium Susp 30 Ml Udc) 30 ml PO Q6H PRN PRN Reason: Dyspepsia Stop: 02/26/22 14:37 Bisacodyl (Bisacodyl 10 Mg Supp) 10 mg MT DAILY PRN PRN Reason: Constipation Stop: 02/26/22 14:37 Cyclobenzaprine HCl (Cyclobenzaprine Hcl 5 Mg Tab) 5 mg PO TID THUAN Stop: 02/26/22 14:37 Last Admin: 01/29/22 08:22 Dose: 5 mg Documented by: Diphenhydramine HCl (Diphenhydramine Capsule 25 Mg Cap) 25 mg PO Q6H PRN PRN Reason: Allergic Rhinitis/Insomnia Stop: 02/26/22 14:37 Famotidine (Famotidine 20 Mg Tab) 20 mg PO Q12H PRN PRN Reason: Dyspepsia Stop: 02/26/22 14:37 Gabapentin (Gabapentin 800 Mg Tab) 800 mg PO TID THUAN Stop: 02/26/22 15:29 Last Admin: 01/29/22 08:20 Dose: 800 mg Documented by: Hydromorphone HCl (Hydromorphone Inj 0.5 Mg/0.5 Ml Syr) 0.5 mg IV Q3H PRN PRN Reason: MODERATE Pain (Scale 4,5,6) & Pre PT Stop: 02/10/22 14:37 Hydromorphone HCl (Hydromorphone Inj 1 Mg/Ml Syringe) 1 mg IV Q3H PRN PRN Reason: SEVERE Pain (Scale 7,8,9,10) Stop: 02/10/22 14:37 Hydroxyzine HCl (Hydroxyzine Hcl 25 Mg Tab) 25 mg PO Q8H PRN PRN Reason: Anxiety Stop: 02/26/22 14:37 Promethazine HCl 12.5 mg/ (Sodium Chloride) 50.5 mls @ 202 mls/hr IV Q6H PRN PRN Reason: Nausea &/or Vomiting Stop: 02/26/22 14:37 Acetaminophen (Ofirmev) 1,000 mg in 100 mls @ 400 mls/hr IV Q8H PRN PRN Reason: Pain Rating 1-3 & Pre PT Stop: 01/30/22 14:37 Dexamethasone 6 mg/ Syringe 1.5 mls @ 1 mls/min IV DAILY [facility] Stop: 01/30/22 09:02 Last Admin: 01/29/22 08:24 Dose: 1 mls/min Documented by: Lorazepam 0.5 mg/ Syringe 0.5 mls @ 2 mls/min IV Q8H PRN PRN Reason: Sedation/anxiety Stop: 02/27/22 23:00 Influenza Virus Vaccine Quadrival (Do Not Administer Flu Vaccine) 1 ea N/A PRN PRN PRN Reason: Notification Stop: 02/26/22 14:37 Lactobacillus Acidophilus (Advanced Probiotic 1250 Mg Capsule) [facility] Stop: 02/27/22 08:59 Last Admin: 01/29/22 08:22 Dose: 2 cap Documented by: Lorazepam (Lorazepam 0.5 Mg Tab) 0.5 mg PO Q8H PRN PRN Reason: Sedation/Anxiety Stop: 02/26/22 14:37 Last Admin: 01/29/22 08:19 Dose: 0.5 mg Documented by: Magnesium Hydroxide (Magnesium Hydroxide Susp 30 Ml Udc) 30 ml PO Q24H PRN PRN Reason: Constipation Stop: 02/26/22 14:37 Magnesium Oxide (Magnesium Oxide 400 Mg Tab) 400 mg PO [facility] Stop: 02/27/22 08:59 Last Admin: 01/29/22 08:21 Dose: 400 mg Documented by: Metoclopramide HCl (Metoclopramide Hcl Inj 5 Mg/Ml 2 Ml Vial) 10 mg IV Q6H PRN PRN Reason: Nausea &/or Vomiting Stop: 02/26/22 14:37 Naloxone HCl (Naloxone Hcl 0.4 Mg/1 Ml Vial/Carp) 0.1 mg IV Q5M PRN PRN Reason: Oversedation/Resp depression Stop: 02/26/22 14:37 Ondansetron HCl (Ondansetron Inj 2 Mg/Ml 2 Ml Vial) 4 mg IV Q6H PRN PRN Reason: Nausea &/or Vomiting Stop: 02/26/22 14:37 Last Admin: 01/27/22 15:51 Dose: 4 mg Documented by: Ondansetron HCl (Ondansetron 4 Mg Od Tab) 4 mg PO Q6H PRN PRN Reason: Nausea Stop: 02/26/22 14:37 Oxycodone HCl (Oxycodone Hcl Ir 5 Mg Tab (Immediate Release)) 5 - 10 mg PO Q4H PRN PRN Reason: Pain & Pre PT Stop: 02/10/22 14:37 Pantoprazole Sodium (Pantoprazole 40 Mg Tab) 40 mg PO QAM THUAN; Protocol Stop: 02/27/22 08:59 Last Admin: 01/29/22 08:21 Dose: 40 mg Documented by: Pneumococcal Polyvalent Vaccine (Do Not Administer Pneumococcal Vaccine) 1 ea N/A PRN PRN PRN Reason: Notification Stop: 02/26/22 14:37 Polyethylene Glycol (Polyethylene (Miralax) 17 Gm Pack) 17 gm PO Q6 [facility] Stop: 02/27/22 05:59 Last Admin: 01/29/22 04:16 Dose: Not Given Documented by: Senna/Docusate Sodium (Docusate Sodium/Senna 50/8.6mg Tab) 2 tab PO [facility] Stop: 02/26/22 20:59 Last Admin: 01/28/22 20:05 Dose: 2 tab Documented by: Simvastatin (Simvastatin 20 Mg Tab) 20 mg PO [facility] Stop: 02/26/22 20:59 Last Admin: 01/28/22 20:05 Dose: 20 mg Documented by: Sodium Biphosphate/Sodium Phosphate (Sod Phosphate/Sod Biphosphate Enema 132 Ml Btl) 132 ml MT ONE PRN PRN Reason: Constipation Stop: 02/26/22 14:37 Tramadol HCl (Tramadol Hcl 50 Mg Tablet) 50 - 100 mg PO Q4H PRN PRN Reason: Moderate-Severe pain & Pre PT Stop: 02/26/22 14:37 Last Admin: 01/29/22 05:53 Dose: 50 mg Documented by:
== END 2022-01-29 14:47 | disposition home or self-care (01) | DRG 454 ==
LOC: ASU 08:17 → 3N 12:12